=== PATIENT | female | born 1980 | race American Indian/Alaskan Native ===

== ENCOUNTER 2018-04-13 22:35 | Emergency (ER) | payer SELFPAY ==
[2018-04-13] MEDS ORDERED: ULTRAM PO ONE (23:19)
--- NOTE | 2018-04-13 23:35 | Emergency Department Report ---
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 3 days stay she hurt her shoulder loading packages and warehouse pain described as 5/10 aching soreness exacerbated by movement and overhead lifting pain is relieved by nothing there is no numbness or tingling or weakness no paralysis there is no upper extremity swelling symptoms are relieved by rest symptoms are exacerbated by overuse MD Complaint: Injury to:: right, shoulder Onset/Timin -: days(s) Other Extremity Injury: Shoulder: Right Other Injuries: none Handedness: right Place: work Severity scale (0 -10): 5 Improves With: rest Worsens With: movement of extremity Context: other (over head lifting ) Associated Symptoms: denies: weakness, numbness, neck pain, suspects foreign body, nausea/vomiting, heard/felt popping sensat - Related Data Previous Rx's Medication Instructions Recorded Last Taken Type Cyclobenzaprine [Flexeril] 10 mg PO TID PRN #30 tablet 04/13/18 Unknown Rx Menthol/Camphor [[place] 1 applicatio TP TID PRN #1 tube 04/13/18 Unknown Rx Ointment] Naproxen [Naprosyn TAB] 500 mg PO BID #30 tablet 04/13/18 Unknown Rx Allergies Allergy/AdvReac Type Severity Reaction Status Date / Time Penicillins Allergy Hives Verified 04/13/18 22:41 ED Review of Systems ROS: Stated complaint: RT SIDE PAIN SHOULDER/NECK Other details as noted in HPI Constitutional: denies: chills, fever Eyes: denies: eye pain, eye discharge, vision change ENT: denies: ear pain, throat pain Respiratory: denies: cough, shortness of breath, wheezing Cardiovascular: denies: chest pain, palpitations Endocrine: no symptoms reported Gastrointestinal: denies: abdominal pain, nausea, diarrhea Genitourinary: denies: urgency, dysuria, discharge Musculoskeletal: arthralgia, myalgia. denies: back pain, joint swelling Skin: denies: rash, lesions Neurological: denies: headache, weakness, paresthesias Psychiatric: denies: anxiety, depression Hematological/Lymphatic: denies: easy bleeding, easy bruising ED Past Medical Hx - Past Medical History Previous Medical History?: No - Surgical History Past Surgical History?: No - Social History Smoking Status: Current Every Day Smoker Substance Use Type: None - Medications Home Medications: Home Medications Medication Instructions Recorded Confirmed Last Taken Type Cyclobenzaprine [Flexeril] 10 mg PO TID PRN #30 tablet 04/13/18 Unknown Rx Menthol/Camphor [[place] 1 applicatio TP TID PRN #1 tube 04/13/18 Unknown Rx Ointment] Naproxen [Naprosyn TAB] 500 mg PO BID #30 tablet 04/13/18 Unknown Rx ED Physical Exam - General Limitations: No Limitations General appearance: alert, in no apparent distress - Head Head exam: Present: atraumatic, normocephalic - Eye Eye exam: Present: normal appearance, PERRL, EOMI Pupils: Present: normal accommodation - ENT ENT exam: Present: mucous membranes moist - Neck Neck exam: Present: normal inspection, full ROM. Absent: tenderness, meningismus, lymphadenopathy, thyromegaly - Respiratory Respiratory exam: Present: normal lung sounds bilaterally. Absent: respiratory distress, wheezes, rhonchi, chest wall tenderness - Cardiovascular Cardiovascular Exam: Present: regular rate, normal rhythm, normal heart sounds. Absent: systolic murmur, diastolic murmur, rubs, gallop - GI/Abdominal GI/Abdominal exam: Present: soft, normal bowel sounds - Rectal Rectal exam: Present: deferred - Extremities Exam Extremities exam: Present: tenderness (right lateral should and ac joint ), normal capillary refill. Absent: pedal edema, joint swelling, calf tenderness - Expanded Upper Extremity Exam Right Shoulder Exam: Present: tenderness, tenderness over AC joint. Absent: swelling , abrasion, laceration, ecchymosis, deformity, crepidus, dislocation, erythema Upper Arm exam: Present: normal inspection, full ROM, tenderness Elbow exam: Present: normal inspection, full ROM, tenderness, pain w/ pronation/ supination (pain radiates to right shoulder ). Absent: swelling, abrasion, laceration, ecchymosis, deformity, crepidus, dislocation, erythema, effusion, tenderness over radial head Forearm Wrist exam: Present: normal inspection Hand Wrist exam: Present: normal inspection, full ROM Neuro motor exam: Present: wrist extension intact, thumb opposition intact, thumb IP flexion intact, thumb adduction intact, fingers 2-5 abduction intact Neurosensory exam: Present: 2-point discrimination, radial nerve intact, ulnar nerve intact, median nerve intact Vascular: Present: normal capillary refill, radial pulse, brachial pulse, ulnar pulse. Absent: vascular compromise, pulse deficit radial art, pulse deficit ulnar art, pulse deficit brachial art - Back Exam Back exam: Present: normal inspection, full ROM, muscle spasm. Absent: tenderness, CVA tenderness (R), CVA tenderness (L), paraspinal tenderness, vertebral tenderness, rash noted - Neurological Exam Neurological exam: Present: alert, oriented X3, CN II-XII intact, normal gait, reflexes normal. Absent: motor sensory deficit - Psychiatric Psychiatric exam: Present: normal affect, normal mood - Skin Skin exam: Present: warm, dry, intact, normal color. Absent: rash ED Course Vital Signs 04/13/18 22:39 Temperature 98.3 F Pulse Rate 75 Respiratory 16 Rate Blood Pressure 109/72 O2 Sat by Pulse 94 Oximetry ED Medical Decision Making - Medical Decision Making By now improved this is a Right shoulder strain likely due to overuse plan NSAIDs muscle relaxants shoulder exercises patient will follow with PCP in 2-3 days return immediately should symptoms worsen patient verbalizes agreement and understanding of same patient DC'd home in stable condition at this time Critical care attestation.: If time is entered above; I have spent that time in minutes in the direct care of this critically ill patient, excluding procedure time. ED Disposition Clinical Impression: Sprain of shoulder Qualifiers: Encounter type: initial encounter Shoulder sprain type: rotator cuff capsule Laterality: right Qualified Code(s): S43.421A - Sprain of right rotator cuff capsule, initial encounter Disposition: DC-01 TO HOME OR SELFCARE Is pt being admited?: No Does the pt Need Aspirin: No Condition: Good Instructions: Shoulder Sprain (ED), Rotator Cuff Tendinitis (ED) Prescriptions: Cyclobenzaprine [Flexeril] 10 mg PO TID PRN #30 tablet PRN Reason: Muscle Spasm Menthol/Camphor [[place] Ointment] 1 applicatio TP TID PRN #1 tube PRN Reason: pain Naproxen [Naprosyn TAB] 500 mg PO BID #30 tablet Referrals: [facility] [Outside] - 3-5 Days MARICEL SCHMITT MD [Staff Physician] - 3-5 Days Forms: Work/School Release Form(ED) Time of Disposition: 23:42
[2018-04-14 00:28] VITALS: BP 132/66
== END 2018-04-14 00:26 | disposition home or self-care (01) ==
LOC: ED 22:35
DX: S43.421A Sprain of right rotator cuff capsule, initial encounter (principal); F17.200 Nicotine dependence, unspecified, uncomplicated; X50.0XXA Overexertion from strenuous movement or load, initial encounter; Y93.89 Activity, other specified; Y99.8 Other external cause status; Y92.69 Other specified industrial and construction area as the place of occurrence of the external cause
CPT/HCPCS: 99282

== ENCOUNTER 2019-02-02 14:49 | Emergency (ER) | payer OTHER ==
--- NOTE | 2019-02-02 14:57 | Event Note ---
ED Screening Note ED Screening Note: sore throat and ear pain cig psh none rx none pmh none LMP 7-22 This initial assessment/diagnostic orders/clinical plan/treatment(s) is/are subject to change based on patients health status, clinical progression and re- assessment by fellow clinical providers in the ED. Further treatment and workup at subsequent clinical providers discretion. Patient/guardian urged not to elope from the ED as their condition may be serious if not clinically assessed and managed. Initial orders include: rx ACC eval
[2019-02-02] MEDS ORDERED: IBUPROFEN PO ONE (15:22)
[2019-02-02] MEDS ORDERED: DECADRON PO STA (16:02)
--- NOTE | 2019-02-02 16:26 | Emergency Department Report ---
- General Chief Complaint: Sore Throat Stated Complaint: SORE THROAT/HEADACHE/EAR ACHES Time Seen by Provider: 02/02/19 14:55 Source: patient Mode of arrival: Ambulatory Limitations: No Limitations - History of Present Illness MD Complaint: sore throat, rhinorrhea, other (horseness) Severity: mild Quality: dull Consistency: constant Improves With: nothing Worsens With: nothing Associated Symptoms: denies other symptoms, rhinorrhea, cough. denies: myalgias, chest pain, abdominal pain, vomiting, right sweats, weight loss, hoarseness, ear pain Treatments Prior to Arrival: none - Related Data Previous Rx's Medication Instructions Recorded Last Taken Type Cyclobenzaprine [Flexeril] 10 mg PO TID PRN #30 tablet 04/13/18 Unknown Rx Menthol/Camphor [[place] 1 applicatio TP TID PRN #1 tube 04/13/18 Unknown Rx Ointment] Naproxen [Naprosyn TAB] 500 mg PO BID #30 tablet 04/13/18 Unknown Rx Brompheniramine/Pseudoephed/Dm 5 ml PO Q6H PRN #240 syrup 02/02/19 Unknown Rx [Hkugopgcgy-Biczxclhhum-Cc Syr] Chlorhexidine Mouthwash [Peridex] 10 ml MM BID #1 bottle 02/02/19 Unknown Rx Lidocaine Viscous 2% 5 ml MM Q3H PRN #120 udc 02/02/19 Unknown Rx Allergies Allergy/AdvReac Type Severity Reaction Status Date / Time Penicillins Allergy Hives Verified 04/13/18 22:41 ED Review of Systems ROS: Stated complaint: SORE THROAT/HEADACHE/EAR ACHES Other details as noted in HPI Comment: All other systems reviewed and negative ED Past Medical Hx - Past Medical History Previous Medical History?: No - Surgical History Past Surgical History?: No - Social History Smoking Status: Current Every Day Smoker Substance Use Type: None - Medications Home Medications: Home Medications Medication Instructions Recorded Confirmed Last Taken Type Cyclobenzaprine [Flexeril] 10 mg PO TID PRN #30 tablet 04/13/18 Unknown Rx Menthol/Camphor [[place] Latimer 1 applicatio TP TID PRN #1 tube 04/13/18 Unknown Rx Ointment] Naproxen [Naprosyn TAB] 500 mg PO BID #30 tablet 04/13/18 Unknown Rx Brompheniramine/Pseudoephed/Dm 5 ml PO Q6H PRN #240 syrup 02/02/19 Unknown Rx [Yargndsitn-Dmruifldwds-Tj Syr] Chlorhexidine Mouthwash [Peridex] 10 ml MM BID #1 bottle 02/02/19 Unknown Rx Lidocaine Viscous 2% 5 ml MM Q3H PRN #120 udc 02/02/19 Unknown Rx ED Physical Exam - General Limitations: No Limitations General appearance: alert, in no apparent distress - Head Head exam: Present: atraumatic, normocephalic, normal inspection - Eye Eye exam: Present: normal appearance, PERRL, EOMI. Absent: scleral icterus, conjunctival injection Pupils: Present: normal accommodation - ENT ENT exam: Present: normal exam, mucous membranes moist, TM's normal bilaterally - Neck Neck exam: Present: normal inspection - Respiratory Respiratory exam: Present: normal lung sounds bilaterally. Absent: respiratory distress, wheezes, rales, chest wall tenderness, accessory muscle use - Cardiovascular Cardiovascular Exam: Present: regular rate, normal rhythm. Absent: systolic murmur, diastolic murmur, rubs, gallop - GI/Abdominal GI/Abdominal exam: Present: soft, normal bowel sounds - Extremities Exam Extremities exam: Present: normal inspection, full ROM, normal capillary refill - Back Exam Back exam: Present: normal inspection. Absent: CVA tenderness (R), CVA tenderness (L) - Neurological Exam Neurological exam: Present: alert, oriented X3, CN II-XII intact, normal gait - Psychiatric Psychiatric exam: Present: normal affect, normal mood - Skin Skin exam: Present: warm, dry, intact, normal color. Absent: rash ED Course Vital Signs 02/02/19 14:55 Temperature 98.4 F Pulse Rate 82 Respiratory 18 Rate Blood Pressure 107/60 O2 Sat by Pulse 98 Oximetry Critical care attestation.: If time is entered above; I have spent that time in minutes in the direct care of this critically ill patient, excluding procedure time. ED Disposition Clinical Impression: Pharyngitis Disposition: DC-01 TO HOME OR SELFCARE Is pt being admited?: No Does the pt Need Aspirin: No Condition: Stable Instructions: Pharyngitis (ED), Laryngitis (ED) Prescriptions: Brompheniramine/Pseudoephed/Dm [Oqcbmgivjn-Zmjjpwktppm-Kr Syr] 5 ml PO Q6H PRN #240 syrup PRN Reason: Cough Lidocaine Viscous 2% 5 ml MM Q3H PRN #120 udc PRN Reason: Pain, Moderate (4-6) Chlorhexidine Mouthwash [Peridex] 10 ml MM BID #1 bottle Referrals: ROSI FRANCO MD [Primary Care Provider] - 3-5 Days
[2019-02-02 16:54] VITALS: BP 110/70
== END 2019-02-02 16:53 | disposition home or self-care (01) ==
LOC: ED 14:49
DX: J02.9 Acute pharyngitis, unspecified (principal); F17.200 Nicotine dependence, unspecified, uncomplicated; Z79.899 Other long term (current) drug therapy; Z88.0 Allergy status to penicillin
CPT/HCPCS: 99282; J1100